=== PATIENT | male | born 1950 | race Asian ===

== ENCOUNTER → 2016-08-03 | Outpatient (CLI) | payer OTHER ==
[~2016-08-03] MED LIST: ASPI-496 PO; CEPH-368 PO; FIBER TAB PO; IBUP100T6 PO; MULTIVITAMIN PO; NEXIUM PO; OXYC-229 PO; SIMV40TA3 PO; SOLI5TAB PO; TIZA2CAP2 PO; TIZA2TAB PO
== END | disposition home or self-care (01) ==
LOC: CFH 07:43
PROVIDERS: ATTEND Internal Medicine Pulmonary Disease
DX: R91.8 Other nonspecific abnormal finding of lung field (principal); R19.02 Left upper quadrant abdominal swelling, mass and lump; I25.10 Atherosclerotic heart disease of native coronary artery without angina pectoris
CPT/HCPCS: 71250